=== PATIENT | female | born 1945 | race Hispanic/Latino ===

== ENCOUNTER → 2025-01-13 | Outpatient (CLI) | payer MEDICARE ==
--- NOTE | 2025-01-14 00:02 | HMCIMG ---
EXAM: CT Head Without Intravenous Contrast. CLINICAL HISTORY: Neoplasm of unspecified behavior of the brain is a clinical indication. TECHNIQUE: Axial computed tomography images of the head/brain without intravenous contrast. Dose reduction technique was used including one or more of the following: automated exposure control, adjustment of mA and kV according to patient size, and/or iterative reconstruction. The total exam DLP is 920 mg a day into cm. CONTRAST: Without COMPARISON: None. FINDINGS: BRAIN: No acute intraparenchymal hemorrhage. No mass lesion. No CT evidence for acute territorial infarct. No midline shift or extra-axial collection. There is age appropriate neuroparenchymal volume loss with prominence of the sulcal spaces, basal cisterns and ex vacuo dilatation of the ventricular system. There is atheromatous calcification of the intracranial arteries. There are areas of gliosis involving the left frontal lobe, the sylvian cortex with ex vacuo prominence of the frontal horn and the body of the left lateral ventricle. A 4 mm sized calcific nodule is present in the left precentral gyrus without perilesional edema. VENTRICLES: No hydrocephalus. Ex vacuo dilatation of the ventricular system. Ex vacuo prominence of the frontal horn and the body of the left lateral ventricle. ORBITS: The orbits are unremarkable. SINUSES AND MASTOIDS: The paranasal sinuses are clear. There is partial opacification and sclerosis of the left mastoid air cells. The right mastoid air cells are clear. An air fluid level is seen in the left maxillary sinus suggesting sinusitis. SOFT TISSUES: No significant facial or scalp soft tissue swelling evident. No radiopaque foreign body is seen. BONES: No acute skull fracture. There is hyperostosis frontalis interna present. IMPRESSION: 1. Areas of gliosis in the left frontal lobe, the sylvian cortex, suggestive of sequelae of old insult, which may be neoplastic/ischemic. 2. No acute intracranial hemorrhage, mass or mass effect. 3. An air fluid level is seen in the left maxillary sinus suggesting sinusitis. /[place]
== END | disposition home or self-care (01) ==
LOC: RAH 12:38
PROVIDERS: ATTEND Family Medicine
DX: M85.2 Hyperostosis of skull (principal); I67.2 Cerebral atherosclerosis; D49.6 Neoplasm of unspecified behavior of brain; G93.89 Other specified disorders of brain
CPT/HCPCS: 70450